=== PATIENT | female | born 1945 | race Asian ===

== ENCOUNTER 2018-01-08 08:13 | Outpatient (CLI) | payer MEDICARE, MEDICAID ==
--- NOTE | 2018-01-08 10:48 | MRI ---
MRI LEFT KNEE WITHOUT CONTRAST: Date: 01/08/18 HISTORY: M25.562, pain in left knee. COMPARISON: None. FINDINGS: Medial Meniscus: Undersurface flap tear of the body and posterior horn with abnormal signal extendin g to the root attachment. There is subsequent loss of hoop stress and a 3.0 mm medial gutter extrusio n. Lateral Meniscus: Intact. Mild mucinous degeneration anterior cruciate ligament. Posterior cruciate ligament is intact. MCL and LCL are intact. Extensor Mechanism: Quadriceps tendon, patella, and patellar tendon are intact. Cartilage: Patellofemoral compartment: Intact. Medical compartment: Approximately 25-50% cartilage fraying of the weightbearing surface medial femo ral condyle medial tibial plateau. No high grade cartilage fissures. Lateral compartment: There is some full thickness cartilage fissuring of the central weightbearing s urface of the lateral tibial plateau with subchondral reactive marrow changes. Bones: No fracture. No malalignment. Muscles: Normal muscle signal and bulk. Soft Tissues: Small popliteal cyst. IMPRESSION: 1. Undersurface flap tear of body and posterior horn medial meniscus with abnormal signal extending to the root attachment. Subsequent 3.0 mm medial gutter extrusion with Grade II chondromalacia. 2. Moderate mucinous degeneration ACL. 3. Multifocal Grade IV cartilage fissures of the central weightbearing surface lateral tibial platea u with subchondral reactive marrow changes. 4. Small popliteal cyst. POS: [facility]
== END 2018-01-08 08:14 | disposition home or self-care (01) ==
LOC: MRI 08:13
PROVIDERS: ATTEND Internal Medicine Rheumatology
DX: M25.562 Pain in left knee (principal); S83.242A Other tear of medial meniscus, current injury, left knee, initial encounter; M94.262 Chondromalacia, left knee; M71.22 Synovial cyst of popliteal space [Baker], left knee

== ENCOUNTER 2018-12-04 15:14 | Emergency (ER) | payer MEDICARE, OTHER ==
--- NOTE | 2018-12-04 16:21 | RAD ---
RIGHT WRIST THREE VIEWS: 12/04/18 HISTORY: Injury from trauma. FINDINGS: Irregular, slightly oblique very minimally displaced fracture through the distal ulnar shaft with maegan e mild dorsal angulation. Minimal soft tissue swelling. The radius and carpal bones appear intact. IMPRESSION: Minimally displaced, slightly comminuted somewhat obliqued fracture through the distal ulnar shaft wi th slight dorsal angulation. POS: [facility]
== END 2018-12-04 16:13 | disposition home or self-care (01) ==
LOC: SCSER 15:14
DX: S52.601A Unspecified fracture of lower end of right ulna, initial encounter for closed fracture (principal); W22.8XXA Striking against or struck by other objects, initial encounter
CPT/HCPCS: 25600

== ENCOUNTER 2019-07-11 14:54 | Outpatient (CLI) | payer MEDICARE, OTHER ==
--- NOTE | 2019-07-11 17:57 | BD ---
DEXA BONE DENSITOMETRY: (Dual energy X-ray Absorptiometry) DATE: 07/11/2019 HISTORY: 73-year-old female for baseline, age-related, postmenopausal osteoporosis screening examination . Height: 60 Weight: 84 lbs Age of menopause: 51 years COMPARISON: None available. FINDINGS: The bone mineral density (BMD) is given in grams per square centimeter (g/cm2): LUMBAR SPINE: BMD(g/cm2) T-score Z-score L1: 0.646 -3.1 -1.0 L2: 0.622 -3.7 -1.3 L3: 0.658 -3.9 -1.3 L4: 0.757 -2.8 -0.2 Total: 0.674 -3.4 -1.0 HIP: Femoral neck: 0.493 -3.2 -1.1 Total: 0.627 -2.6 -0.8 IMPRESSION: 1. The mean bone mineral density of the lumbar spine is osteoporotic. Fracture risk is high. 2. The bone mineral density of the femoral neck is osteoporotic. Fracture risk is high. JN R POS: [facility]
== END 2019-07-11 14:55 | disposition home or self-care (01) ==
LOC: BICMAMMO 14:54
PROVIDERS: ATTEND Internal Medicine
DX: M81.0 Age-related osteoporosis without current pathological fracture (principal)
CPT/HCPCS: 77080

== ENCOUNTER 2020-04-03 14:33 | Outpatient (CLI) | payer MEDICARE, OTHER ==
--- NOTE | 2020-04-03 14:57 | BD ---
EXAM: Bone densitometry using DEXA HISTORY: 74 yo female. Screening for postmenopausal osteoporosis FINDINGS: L1--bone mineral density 0.648 g/sq cm; T score -3.1 ; Z score -0.9 L2--bone mineral density 0.680 g/sq cm; T score -3.2 ; Z score -0.7 L3--bone mineral density 0.692 g/sq cm; T score -3.6 ; Z score -1.0 L4--bone mineral density 0.753 g/sq cm; T score -2.8 ; Z score -0.2 Total L1-L4--bone mineral density 0.697 g/sq cm; T score -3.2 ; Z score -0.7 Left femoral neck--bone mineral density0.531; T score -2.9 ; Z score -0.7 Total proximal left femur--bone mineral density 0.700; T score -2.0 ; Z score -0.1 There has been an interval improvement of 3.4% in the BMD of the lumbar spine and a improvement of 11.6% in the BMD of the proximal femur since the previous study of 07/11/2019. IMPRESSION: Osteoporosis
== END 2020-04-03 14:34 | disposition home or self-care (01) ==
LOC: BICMAMMO 14:33
PROVIDERS: ATTEND Internal Medicine Rheumatology
DX: M81.0 Age-related osteoporosis without current pathological fracture (principal)
CPT/HCPCS: 77080

== ENCOUNTER 2024-12-06 16:53 | Emergency (ER) | payer OTHER, MEDICAID ==
[~2024-12-06 16:53] MED LIST: Iopamidol 370 76% 100 ML VIAL ONE
[2024-12-06 18:31] LABS: #Basophils Less than 0.03 10x3/uL (0.0-0.2); #Eosinophils 0.05 10x3/uL (0.0-0.7); #Monocytes 0.50 10x3/uL (0.11-0.59); #Neutrophils 3.60 10x3/uL (1.40-6.50); %Basophils 0.4 % (0.0-1.0); %Eosinophils 0.9 % (0.0-10.0); %Lymphocytes 25.1 % (21.0-51.0); %Monocytes 9.0 % (0.0-10.0); %Neutrophils 64.4 % (42.0-75.0); Hematocrit 32.9 % (36.0-47.0); Hemoglobin 10.4 g/dL (12.0-16.0); Mean Corpuscular Hemoglobin 26.7 pg (27.0-31.0); Mean Corpuscular Volume 84.4 fL (78.0-98.0); Platelet Count 256 10x3/uL (130-400); Red Blood Cell (RBC) Count 3.90 mill/uL (4.20-5.40); White Blood Cell (WBC) Count 5.58 10x3/uL (4.8-10.8)
[2024-12-06 18:51] LABS: ALT (SGPT) 18 U/L (Less than 34); AST (SGOT) 31 U/L (11-34); Albumin 3.7 g/dL (3.1-4.5); Alkaline Phosphatase 44 U/L (40-110); Anion Gap 15 mmol/L (10-20); BUN (Urea Nitrogen) 8 mg/dL (9.8-20.1); Bilirubin, Total 0.3 mg/dL (0.3-1.2); Calc. Creatinine Clearance 0 mL/min (70-130); Calcium 9.1 mg/dL (7.8-10.44); Carbon Dioxide 23 mmol/L (23-31); Chloride 105 mmol/L (98-107); Globulin 4.0 g/dL (2.4-3.5); Glucose 94 mg/dL (83-110); Potassium 4.1 mmol/L (3.5-5.1); Sodium 139 mmol/L (136-145)
[2024-12-06 20:00] LABS: INR-International Normal Ratio 1.1; PTT 32.6 sec (22.9-36.1); Prothrombin Time 14.0 sec (12.0-14.7)
== END 2024-12-06 20:40 | disposition home or self-care (01) ==
LOC: ERS 16:53
DX: A04.72 Enterocolitis due to Clostridium difficile, not specified as recurrent (principal)
CPT/HCPCS: 74177; 80053; 83605; 83690; 85025; 85610; 85730; Q9967; 36415; 82274; 96360

== ENCOUNTER 2025-02-07 15:47 | Outpatient (CLI) | payer OTHER ==
[2025-02-07 16:14] LABS: Estimated GFR - POC 74.0
== END 2025-02-07 15:48 | disposition home or self-care (01) ==
LOC: CT 15:47
PROVIDERS: ATTEND Internal Medicine Gastroenterology
DX: C18.9 Malignant neoplasm of colon, unspecified (principal); K62.89 Other specified diseases of anus and rectum
CPT/HCPCS: 36415; 71260; 74177; 82565; Q9967

== ENCOUNTER 2025-02-14 14:08 | Outpatient (CLI) | payer OTHER, MEDICAID | END 2025-02-14 14:09 | disposition home or self-care (01) | LOC: SCSMRI 14:08 | PROVIDERS: ATTEND Surgery | DX: C20 Malignant neoplasm of rectum (principal) | CPT/HCPCS: 72197 ==